=== PATIENT | male | born 1960 | race African-American/Black ===

== ENCOUNTER 2018-10-11 21:20 | Inpatient (IN) | payer MEDICARE, MEDICAID ==
--- NOTE | 2018-10-11 21:28 | ED Physician Chart ---
ED Chief Complaint/HPI - Patient Information Date Seen:: 10/11/18 Time Seen:: 21:26 Chief Complaint:: head trauma History of Present Illness:: this is a [facility] patient who fell out of bed tonight and sustain a laceration with a contusion. the patient's pulse ox became low after the fall. Historian:: EMS, Medical Records Review:: Nurse's Note Reviewed, Old Chart Reviewed ED Review of Systems - Review of Systems General/Constitutional: No fever, No chills, No weight loss, No weakness, No diaphoresis, No edema, No loss of appetite, Other Skin: No skin lesions, No rash, No bruising Head: No headache, No light-headedness Eyes: No loss of vision, No pain, No diplopia ENT: No earache, No nasal drainage, No sore throat, No tinnitus Neck: No neck pain, No swelling, No thyromegaly, No stiffness, No mass noted Cardio Vascular: No chest pain, No palpitations, No PND, No orthopnea, No edema Pulmonary: No SOB, No cough, No sputum, No wheezing GI: No nausea, No vomiting, No diarrhea, No pain, No melena, No hematochezia, No constipation, No hematemesis G/U: No dysuria, No frequency, No hematuria Musculoskeletal: No bone or joint pain, No back pain, No muscle pain Endocrine: No polyuria, No polydipsia Psychiatric: No prior psych history, No depression, No anxiety, No suicidal ideation Hematopoietic: No bruising, No lymphadenopathy Allergic/Immuno: No urticaria, No angioedema Neurological: No syncope, No focal symptoms, No weakness, No paresthesia, No headache, No seizure, No dizziness, No confusion, No vertigo ED Past Medical History - Past Medical History Obtainable: Yes Past Medical History: HTN, Dyslipidemia, Dementia, Other (glaucoma, parkinson's) Family History: None Social History: Non Smoker, No Alcohol, No Drug Use, Care Facility Surgical History: None Psychiatricy History: None Medication: Reviewed Family Medical History - Family Member Mother History Unknown: Yes ED Physical Exam - Physical Examination General/Constitutional: Awake, Well-developed, well-nourished, Alert, No distress, GCS 15, Non-toxic appearing, Ambulatory Head: Atraumatic Other Head comments:: a small star shaped superfical laceration. Eyes: Lids, conjuctiva normal, PERRL, EOMI Skin: Nl inspection, No rash, No skin lesions, No ecchymosis, Well hydrated, No lymphadenopathy ENMT: External ears, nose nl, Nasal exam nl, Lips, teeth, gums nl Neck: Nontender, Full ROM w/o pain, No JVD, No nuchal rigidity, No bruit, No mass, No stridor Respiratory: Nl effort/Exclusion, Clear to Auscultation, No Wheeze/Rhonchi/Rales Cardio Vascular: RRR, No murmur, gallop, rubs, NL S1 S2 GI: No tenderness/rebounding/guarding, No organomegaly, No hernia, Normal BS's, Nondistended, No mass/bruits, No McBurney tenderness : No CVA tenderness Extremities: No tenderness or effusion, Full ROM, normal strength in all extremities, No edema, Normal digits & nails Neuro/Psych: Alert/oriented, DTR's symmetric, Normal sensory exam, Normal motor strength, Judgement/insight normal (poor insight and confused at times), Mood normal, Normal gait, No focal deficits Misc: Normal back, No paraspinal tenderness ED Labs/Radiology/EKG Results - Lab Results Results: chest -xray = nad - Radiology Results Results: ct scan of the head = nad ED Assessment - Assessment General Assessment: head trauma ED Septic Shock - . Is Septic Shock (SBP<90, OR Lactate>4 mmol\L) present?: No ED Reassessment (Disposition) - Reassessment Reassessment Condition:: Improved - Diagnosis Diagnosis:: head contusion forehead laceration.
[2018-10-11 22:31] LABS: % BASOPHILS 0.8 % (0.0-2.0); % EOSINOPHILS 0.8 % (0.0-5.0); % LYMPHOCYTES 17.9 % (20.0-50.0); % MONOCYTES 6.5 % (2.0-10.0); BASOPHILE ABSOLUTE 0.1 Th/cumm (0-0.2); EOSINOPHILE ABSOLUTE 0.1 Th/cmm (0.1-0.4); HEMATOCRIT 45.4 % (41.0-60); HEMOGLOBIN 14.2 gm/dL (12-16); LYMPHOCYTE ABSOLUTE 1.4 Th/cmm (1.5-3.0); MEAN CELL VOLUME 82.8 fl (80-99); MEAN CORPUSCULAR HGB CONC 31.4 pg (28.0-36.0); MEAN PLATELET VOLUME 7.1 fl; MONOCYTE ABSOLUTE 0.5 Th/cmm (0.3-1.0); NEUTROPHILE ABSOLUTE 5.8 Th/cmm (1.8-8.0); PLATELET COUNT 317 Th/cmm (150-400); RED BLOOD COUNT 5.48 Mil/cmm (4.30-5.70); RED CELL DISTRIBUTION WIDTH 12.6 % (11.5-20.0); WHITE BLOOD COUNT 7.9 Th/cmm (4.8-10.8)
[2018-10-11 22:41] LABS: INR 0.99 (0.5-1.4); PROTHROMBIN TIME (TEST) 10.3 SECONDS (9.5-11.5)
[2018-10-11 22:49] LABS: ALB/GLOB RATIO 1.2 (1.0-1.8); ALBUMIN 4.2 gm/dL (4.2-5.5); ALKALINE PHOSPHATASE 61 U/L (34-104); ANION GAP 11.9 (7.0-16.0); BILIRUBIN,TOTAL 0.6 mg/dL (0.3-1.0); BUN - UREA NITROGEN 14 mg/dL (7-25); CALCIUM SERUM 9.8 mg/dL (8.6-10.3); CARBON DIOXIDE 29.4 mEq/L (21.0-31.0); CHLORIDE 96 mEq/L (98-107); CREATININE - SERUM 0.8 mg/dL (0.7-1.3); GFR AFRICAN-AMERICAN > 60.0 ml/min (>90); GFR NON AFRICAN-AMERICAN > 60.0 ml/min; GLUCOSE 169 mg/dL (70-105); POTASSIUM SERUM 4.3 mEq/L (3.5-5.1); SGOT 19 U/L (13-39); SGPT/ALT 23 U/L (7-52); SODIUM SERUM 133 mEq/L (136-145); TOTAL PROTEIN,SERUM 7.8 gm/dL (6.0-8.3)
[2018-10-11] MEDS ORDERED: IOHEXOL 350mgI/mL 150mL IV ONE (23:36)
[2018-10-12] MEDS ORDERED: Albuterol/Ipratropium Neb 3 ML AERS HHN ONE ×2 (03:56→03:58)
[2018-10-12 08:38] LABS: PaO2 65.9 mmHg (80.0-100.0)
--- NOTE | 2018-10-12 09:38 | Diagnostic Imaging Report ---
CT pulmonary angiogram with intravenous contrast History: Pulmonary embolism Total DLP equals 505 CTDI equals 12.4 Findings: There is evidence for right perihilar infrahilar adenopathy with superimposed infiltrate. Clinical correlation recommended. Following administration of intravenous contrast, axial sections were obtained from a level above the clavicles down to a level below the diaphragm. The study is limited due to patient inability to cooperate and motion artifacts. The exam demonstrates normal opacification of the main right and left pulmonary arteries. No intraluminal lesions are seen. Specifically, no evidence of pulmonary embolism. There is preservation of normal fat planes throughout the mediastinum. IMPRESSION: No evidence of pulmonary emboli bilaterally Right perihilar and infrahilar infiltrates, question of small small adenopathy. Clinical correlation recommended. The study is limited due to patient motion artifacts.
--- NOTE | 2018-10-12 09:44 | Diagnostic Imaging Report ---
CT scan of the brain without intravenous contrast HISTORY: Trauma Total DLP equals 1049 CTDI equals 49.3 Axial sections were obtained from the base of the skull to the vertex. There is prominence/enlargement of the ventricular system size. Associated enlargement of cerebral sulci and subarachnoid cisterns. Findings are consistent with changes of generalized cerebral atrophy. No acute parenchymal abnormalities. No acute cerebral hemorrhage. Hypodensity is seen within the supratentorial white matter regions without mass effect. The findings may be associated with chronic small vessel ischemic disease. No extra-axial masses or abnormal fluid collections. Soft tissue abrasion noted in the right frontal area IMPRESSION: 1. No acute abnormalities 2. Cerebral atrophy 3. Supratentorial white matter changes that may reflect chronic small vessel ischemic disease 4. Soft tissue abrasion right frontal area.
--- NOTE | 2018-10-12 10:01 | Diagnostic Imaging Report ---
Exam: Chest x-ray HISTORY: Trauma Findings: Upright examination of the chest was reviewed, no prior studies available comparison. Bony thorax is intact. Mediastinal structures midline the heart is not enlarged. There is evidence for mild congestive heart failure changes bilaterally. The costophrenic angles are clear. There is mild right basilar atelectasis. IMPRESSION: Mild congestion. Clinical correlation recommended. Right basilar atelectasis.
[2018-10-12 11:24] VITALS: BP 131/80
[2018-10-12 13:13] LABS: % BASOPHILS 0.9 % (0.0-2.0); % EOSINOPHILS 4.1 % (0.0-5.0); % LYMPHOCYTES 29.7 % (20.0-50.0); % MONOCYTES 7.7 % (2.0-10.0); % NEUTROPHILS 57.6 % (40.0-80.0); BASOPHILE ABSOLUTE 0.1 Th/cumm (0-0.2); EOSINOPHILE ABSOLUTE 0.3 Th/cmm (0.1-0.4); HEMOGLOBIN 12.9 gm/dL (12-16); LYMPHOCYTE ABSOLUTE 2.4 Th/cmm (1.5-3.0); MEAN CELL VOLUME 82.7 fl (80-99); MEAN CORPUSCULAR HEMOGLOBIN 26.5 pg (26.0-30.0); MEAN PLATELET VOLUME 6.7 fl; MONOCYTE ABSOLUTE 0.6 Th/cmm (0.3-1.0); NEUTROPHILE ABSOLUTE 4.8 Th/cmm (1.8-8.0); PLATELET COUNT 312 Th/cmm (150-400); RED BLOOD COUNT 4.87 Mil/cmm (4.30-5.70); RED CELL DISTRIBUTION WIDTH 12.5 % (11.5-20.0); WHITE BLOOD COUNT 8.2 Th/cmm (4.8-10.8)
[2018-10-12 13:14] LABS: HEMATOCRIT 40.3 % (41.0-60)
[2018-10-12 13:28] LABS: ANION GAP 11.9 (7.0-16.0); BUN - UREA NITROGEN 12 mg/dL (7-25); CALCIUM SERUM 9.2 mg/dL (8.6-10.3); CHLORIDE 98 mEq/L (98-107); CREATININE - SERUM 0.8 mg/dL (0.7-1.3); GFR AFRICAN-AMERICAN > 60.0 ml/min (>90); GFR NON AFRICAN-AMERICAN > 60.0 ml/min; GLUCOSE 117 mg/dL (70-105); POTASSIUM SERUM 3.9 mEq/L (3.5-5.1); SODIUM SERUM 135 mEq/L (136-145)
--- NOTE | 2018-10-12 15:40 | History and Physical ---
History of Present Illness - HPI Chief Complaint: 58 y/o male patient was brought into ER due to patient falling out of bed and sustaining a laceration with a contusion. HPI: 58 y/o male patient was admitted to [facility] due to patient falling out of bed and sustaining a laceration with a contusion. Patient has history of Hypertension, Dyslipidemia, Dementia, Glaucoma and Parkinson's disease. Patient had an ER assessment and a complete workup was done. Patient had a CT scan of the head done which showed No acute abnormalities, Cerebral atrophy, Supratentorial white matter changes that may reflect chronic small vessel ischemic disease and Soft tissue abrasion right frontal area. Chest x-ray was also done and showed Mild congestion and Right basilar atelectasis. Patient was diagnosed with Right lower lobe pneumonia, ALOC, Head Contusion with Forehead laceration, Organic brain syndrome and Hypoxemia. The Wound was cleaned and dressed. Patient will have a Psych consult and I will follow, treat and monitor patient. Patient will continue present treatment plan as ordered. Vital Signs: Last Vital Signs Temp 98.9 F 10/12/18 11:56 Pulse 96 10/12/18 11:56 Resp 19 10/12/18 11:56 BP 112/86 10/12/18 11:56 Pulse Ox 96 10/12/18 11:56 Past Medical History Cardiovascular: Report: HTN Pulmonary: Report: Pneumonia [employer]: Report: Dementia GI: Report: No Pertinent Hx Psych: Report: Other (Dementia.) Rheumatologic: Report: No pertinent Hx Infectious Disease: Report: No Pertinent Hx Renal/: Report: No Pertinent Hx Endocrine: Report: No Pertinent Hx Dermatology: Report: No Pertinent Hx - Past Surgical History Past Surgical History: No pertinent Hx Family Medical History - Family Member Mother History Unknown: Yes Ethnicity: Unknown Living Status: Unknown Social History Smoke: No Alcohol: None Drugs: None Lives: Residential Domestic Violence: Negative Health Maintenance Health Maintenance: Other (see chart.) - Medications Home Medications: Home Medication Medication Instructions Recorded Type Aspirin [Aspirin Chewable] 81 mg PO DAILY 10/11/18 History Atorvastatin Calcium [Lipitor] 10 mg PO HS 10/11/18 History Calcium Carbonate 500 mg PO BID 10/11/18 History Hydrocodone/Acetaminophen [[place] 1 each PO Q8H PRN 10/11/18 History 5-325 Tablet] Lactulose 10 gm PO DAILY 10/11/18 History Multivit &Minerals/Ferrous Fum 5 ml PO DAILY 10/11/18 History [Multivitamin Liquid] amLODIPine Besylate [Norvasc] 5 mg PO DAILY 10/11/18 History Other Medications: please see medication reconciliation sheet. - Allergies Allergies/Adverse Reactions: Allergies Allergy/AdvReac Type Severity Reaction Status Date / Time divalproex sodium Allergy Verified 10/11/18 21:31 vitamin E (d-alpha Allergy Verified 10/11/18 21:31 tocopherol) Review of Systems - Review of Systems Constitutional: Report: Other (Head contusion with forehead laceration) Eyes: Report: No Significant ENT: Report: No Significant Respiratory: Report: Other (Mild congestion.) Cardiovascular: Report: No Significant Gastrointestinal: Report: No Significant Genitourinary: Report: No Significant Musculoskeletal: Report: No Significant Neurological: Report: Other (Hx of dementia.) Physical Exam - Physical Exam HEENT: Report: Ears Nose Throat within normal limits Neck: Report: Within normal limits Cardiovascular Systems: Report: +s1/s2 noted Respiratory: Report: Other (congested.) Abdomen: Report: Non-tender to palpation Back: Report: Inspection of back is within normal limits. Extremities: Report: Non-tender to palpation. Skin: Report: A wound was noted Neuro/Psych: Report: Mood affect is within normal limits - Lab Results All Lab Results last 24 hours: Laboratory Results - last 24 hr 10/11/18 10/11/18 10/11/18 22:05 22:05 22:05 WBC 7.9 RBC 5.48 Hgb 14.2 Hct 45.4 MCV 82.8 MCH 26.0 MCHC Differential 31.4 RDW 12.6 Plt Count 317 MPV 7.1 Neutrophils % 74.0 Lymphocytes % 17.9 L Monocytes % 6.5 Eosinophils % 0.8 Basophils % 0.8 PT 10.3 INR 0.99 PTT (Actin FS) 24.9 L Specimen Source Sample Site pH pCO2 pO2 HCO3 Base Excess O2 Saturation Iván Test Vent Rate Inspired O2 Tidal Volume PEEP Pressure (ins/psv/peep) Critical Value Sodium 133 L Potassium 4.3 Chloride 96 L Carbon Dioxide 29.4 Anion Gap 11.9 BUN 14 Creatinine 0.8 Est GFR ( Amer) > 60.0 Est GFR (Non-Af Amer) > 60.0 BUN/Creatinine Ratio 17.5 Glucose 169 H POC Glucose Calcium 9.8 Total Bilirubin 0.6 AST 19 ALT 23 Alkaline Phosphatase 61 Ammonia Troponin I Total Protein 7.8 Albumin 4.2 Globulin 3.6 Albumin/Globulin Ratio 1.2 TSH 10/11/18 10/11/18 10/11/18 22:05 22:05 22:05 WBC RBC Hgb Hct MCV MCH MCHC Differential RDW Plt Count MPV Neutrophils % Lymphocytes % Monocytes % Eosinophils % Basophils % PT INR PTT (Actin FS) Specimen Source Sample Site pH pCO2 pO2 HCO3 Base Excess O2 Saturation Iván Test Vent Rate Inspired O2 Tidal Volume PEEP Pressure (ins/psv/peep) Critical Value Sodium Potassium Chloride Carbon Dioxide Anion Gap BUN Creatinine Est GFR ( Amer) Est GFR (Non-Af Amer) BUN/Creatinine Ratio Glucose POC Glucose Calcium Total Bilirubin AST ALT Alkaline Phosphatase Ammonia 50 Troponin I 0.01 Total Protein Albumin Globulin Albumin/Globulin Ratio TSH 0.55 10/12/18 10/12/18 10/12/18 08:08 09:04 13:07 WBC 8.2 RBC 4.87 Hgb 12.9 Hct 40.3 L D MCV 82.7 MCH 26.5 MCHC Differential 32.0 RDW 12.5 Plt Count 312 MPV 6.7 Neutrophils % 57.6 Lymphocytes % 29.7 Monocytes % 7.7 Eosinophils % 4.1 Basophils % 0.9 PT INR PTT (Actin FS) Specimen Source Arterial Sample Site RB pH 7.430 pCO2 40.0 pO2 65.9 L HCO3 25.8 Base Excess 1.5 O2 Saturation 94.0 Iván Test NA Vent Rate NA Inspired O2 21 Tidal Volume NA PEEP NA Pressure (ins/psv/peep) NA Critical Value SH Sodium Potassium Chloride Carbon Dioxide Anion Gap BUN Creatinine Est GFR ( Amer) Est GFR (Non-Af Amer) BUN/Creatinine Ratio Glucose POC Glucose 118 H Calcium Total Bilirubin AST ALT Alkaline Phosphatase Ammonia Troponin I Total Protein Albumin Globulin Albumin/Globulin Ratio TSH 10/12/18 13:07 WBC RBC Hgb Hct MCV MCH MCHC Differential RDW Plt Count MPV Neutrophils % Lymphocytes % Monocytes % Eosinophils % Basophils % PT INR PTT (Actin FS) Specimen Source Sample Site pH pCO2 pO2 HCO3 Base Excess O2 Saturation Iván Test Vent Rate Inspired O2 Tidal Volume PEEP Pressure (ins/psv/peep) Critical Value Sodium 135 L Potassium 3.9 Chloride 98 Carbon Dioxide 29.0 Anion Gap 11.9 BUN 12 Creatinine 0.8 Est GFR ( Amer) > 60.0 Est GFR (Non-Af Amer) > 60.0 BUN/Creatinine Ratio 15.0 Glucose 117 H POC Glucose Calcium 9.2 Total Bilirubin AST ALT Alkaline Phosphatase Ammonia Troponin I Total Protein Albumin Globulin Albumin/Globulin Ratio TSH - Assessment Assessment: Right lower lobe pneumonia. ALOC. Head Contusion with Forehead laceration. Organic brain syndrome. Hypoxemia. Hypertension. Dyslipidemia. Dementia. Glaucoma. Parkinson's disease. - Plan Plan: Continuation of care Monitor vitals, labs and diet continue present meds as directed Local skin care and wound care prn fall precaution safety precaution psych consult continue present treatment plan as ordered.
[2018-10-13 06:55] LABS: % BASOPHILS 0.6 % (0.0-2.0); % EOSINOPHILS 4.3 % (0.0-5.0); % LYMPHOCYTES 38.6 % (20.0-50.0); % MONOCYTES 9.2 % (2.0-10.0); % NEUTROPHILS 47.3 % (40.0-80.0); EOSINOPHILE ABSOLUTE 0.3 Th/cmm (0.1-0.4); HEMATOCRIT 39.9 % (41.0-60); HEMOGLOBIN 12.6 gm/dL (12-16); LYMPHOCYTE ABSOLUTE 2.3 Th/cmm (1.5-3.0); MEAN CELL VOLUME 83.2 fl (80-99); MEAN CORPUSCULAR HEMOGLOBIN 26.3 pg (26.0-30.0); MEAN CORPUSCULAR HGB CONC 31.6 pg (28.0-36.0); MEAN PLATELET VOLUME 6.7 fl; MONOCYTE ABSOLUTE 0.6 Th/cmm (0.3-1.0); NEUTROPHILE ABSOLUTE 2.8 Th/cmm (1.8-8.0); PLATELET COUNT 314 Th/cmm (150-400); RED BLOOD COUNT 4.79 Mil/cmm (4.30-5.70); RED CELL DISTRIBUTION WIDTH 12.7 % (11.5-20.0)
[2018-10-13 07:09] LABS: ALB/GLOB RATIO 1.1 (1.0-1.8); ALBUMIN 3.9 gm/dL (4.2-5.5); ALKALINE PHOSPHATASE 51 U/L (34-104); ANION GAP 11.6 (7.0-16.0); BILIRUBIN,TOTAL 0.6 mg/dL (0.3-1.0); BUN - UREA NITROGEN 16 mg/dL (7-25); CALCIUM SERUM 9.3 mg/dL (8.6-10.3); CARBON DIOXIDE 28.2 mEq/L (21.0-31.0); CHLORIDE 99 mEq/L (98-107); CREATININE - SERUM 0.9 mg/dL (0.7-1.3); GFR AFRICAN-AMERICAN > 60.0 ml/min (>90); GFR NON AFRICAN-AMERICAN > 60.0 ml/min; GLUCOSE 108 mg/dL (70-105); POTASSIUM SERUM 3.8 mEq/L (3.5-5.1); SGOT 19 U/L (13-39); SGPT/ALT 16 U/L (7-52); SODIUM SERUM 135 mEq/L (136-145); TOTAL PROTEIN,SERUM 7.4 gm/dL (6.0-8.3)
--- NOTE | 2018-10-13 11:27 | Consultation ---
DATE OF CONSULTATION: 10/12/2018 HISTORY OF PRESENT ILLNESS: The patient is a 58-year-old. The patient is in bed, fell and sustained a laceration over the right eyebrow. The patient essentially nonverbal, not talking much. The patient in a facility. PAST MEDICAL HISTORY: The patient with dementia, Parkinson's, hypertension, dyslipidemia, glaucoma. MEDICATIONS: As per reconciliation. REVIEW OF SYSTEMS: Twelve points except for above. PHYSICAL EXAMINATION: VITAL SIGNS: Temperature 98.9, blood pressure 110/80, pulse is 90. NECK: Supple. CARDIAC: Normal heart sounds. LUNGS: Bilateral crepitation. ABDOMEN: Soft. NEUROLOGIC: The patient lying in bed. No speech. The patient will look at me, follow some instructions, but does not say much. Pupils react to light. Face immobile. Motor: The patient has lot of stiffness, rigidity, both upper and lower extremity. Reflexes 1. INVESTIGATIONS: CT scan of the head, no acute process. There is noted to be no intracranial bleed or stroke. The patient has some white matter changes. Soft tissue abrasion over the right frontal area. ASSESSMENT: 1. Fall. 2. Head injury. 3. Dementia. 4. Parkinson's. 5. Hypertension. PLAN: The patient at this time will have a CT scan cervical spine. The patient should start back on his preadmission medications, parkinsonian medications. Swallowing assessment. JOB# [id number]
--- NOTE | 2018-10-13 13:35 | Diagnostic Imaging Report ---
Exam: CT examination cervical spine HISTORY: Status post fall Total DLP equals 755 CTDI equals 36.1 Findings: Multiple contiguous thin section of cervical spine were obtained from base of skull to thoracic outlet without the administration of contrast material no prior studies available comparison. The study demonstrates no evidence for acute fracture dislocation. The vertebral bodies of normal height with narrowing of the intravertebral disc spaces. There is evidence for spurring and bridging of the cervical vertebrae. The posterior elements are intact. There is no evidence of spinal stenosis. Facet joints degenerative changes noted IMPRESSION: Degenerative osteoarthritis cervical spine.
[2018-10-13] MEDS: cefTRIAXone 1 GM in Sodium Chloride 0.9% 50 ML IV SCH (21:07)
[2018-10-13] MEDS: Albuterol/Ipratropium Neb 3 ML AERS HHN SCH (23:08)
[2018-10-14] MEDS: Albuterol/Ipratropium Neb 3 ML AERS HHN SCH ×6 (04:07→23:36)
[2018-10-14] MEDS ORDERED: Hydrocodone/APAP 5mg/325mg Tab PO PRN (05:24)
[2018-10-14 06:28] LABS: ANION GAP 12.1 (7.0-16.0); BUN - UREA NITROGEN 13 mg/dL (7-25); CALCIUM SERUM 9.2 mg/dL (8.6-10.3); CARBON DIOXIDE 28.8 mEq/L (21.0-31.0); CHLORIDE 101 mEq/L (98-107); CREATININE - SERUM 0.8 mg/dL (0.7-1.3); GFR AFRICAN-AMERICAN > 60.0 ml/min (>90); GFR NON AFRICAN-AMERICAN > 60.0 ml/min; GLUCOSE 122 mg/dL (70-105); POTASSIUM SERUM 3.9 mEq/L (3.5-5.1); SODIUM SERUM 138 mEq/L (136-145)
[2018-10-14] MEDS: Multivitamin w/ Minerals Tab PO SCH (09:03)
[2018-10-14] MEDS: Aspirin 81mg Chewable Tab PO SCH (09:03)
[2018-10-14] MEDS: Lactulose 10 Gm/15 mL 30mL UDC PO SCH (09:04)
--- NOTE | 2018-10-14 09:57 | Consultation ---
DATE OF CONSULTATION: 10/13/2018 REFERRING PHYSICIAN: Dr. Quiroz. Thank you very much for this consultation. HISTORY OF PRESENT ILLNESS: The patient is a 58-year-old man, [facility] resident, history of dementia, Parkinson's disease, weakness, dysphagia, who was sent because of fall, sustained laceration on the forehead. The patient has stitches placed and unable to give much history. He was found to have pneumonia in right lower lobe area, was admitted for treatment and management. The patient seems to be congested on and off, not in acute distress. No other history available at this time. PHYSICAL EXAMINATION: VITAL SIGNS: Temperature is 97.1, pulse 86, respiration 19, blood pressure 122/80, saturation 99% on room air. HEENT: Atraumatic, normocephalic. Pupils equal and reactive to light and accommodation. Ears, nose, throat, normal. NECK: Supple. No JVD. CHEST: There are few rhonchi bilaterally. HEART: Regular rate and rhythm. ABDOMEN: Soft. EXTREMITIES: No edema. LABORATORY DATA: WBC 6.0, hemoglobin 12.6. Sodium is 135, potassium 3.8, BUN 16, creatinine 0.9. ABGs: pH 7.43, pCO2 40, pO2 65. Chest x-ray showed an infiltrate in the basilar area. IMPRESSION: 1. Respiratory failure. 2. Pneumonia. 3. Status post fall. 4. Parkinson. 5. Dysphagia. PLAN: 1. Continue nebulizer treatment and antibiotics. 2. Follow up chest x-ray. I will follow the patient with you. JOB# [id number]
[2018-10-14 11:07] LABS: HEMATOCRIT 41.1 % (41.0-60); HEMOGLOBIN 12.9 gm/dL (12-16); MEAN CORPUSCULAR HEMOGLOBIN 26.7 pg (26.0-30.0); MEAN CORPUSCULAR HGB CONC 31.5 pg (28.0-36.0); MEAN PLATELET VOLUME 7.9 fl; PLATELET COUNT 279 Th/cmm (150-400); RED BLOOD COUNT 4.84 Mil/cmm (4.30-5.70); RED CELL DISTRIBUTION WIDTH 13.3 % (11.5-20.0)
[2018-10-14 11:08] LABS: BAND NEUTROPHILE 0 % (0-10); BASOPHIL 0.6 % (0-3); EOSINOPHIL 5.1 % (0-5); LYMPHOCYTE 38.2 % (20-50); MONOCYTE 11.9 % (2-10); NEUTROPHILS 44.2 % (40-80)
--- NOTE | 2018-10-14 17:06 | Internal Medicine Prog Note ---
Internal Medicine Subjective - Subjective Service Date: 10/14/18 Patient seen and examined:: with staff Patient is:: asleep Per staff patient has:: tolerating meds Internal Medicine Objective - Results Result Diagrams: 10/14/18 05:25 10/14/18 05:25 Recent Labs: Laboratory Last Values WBC 6.0 Th/cmm (4.8-10.8) 10/14/18 05:25 RBC 4.84 Mil/cmm (4.30-5.70) 10/14/18 05:25 Hgb 12.9 gm/dL (12-16) 10/14/18 05:25 Hct 41.1 % (41.0-60) 10/14/18 05:25 MCV 85.0 fl (80-99) 10/14/18 05:25 MCH 26.7 pg (26.0-30.0) 10/14/18 05:25 MCHC Differential 31.5 pg (28.0-36.0) 10/14/18 05:25 RDW 13.3 % (11.5-20.0) 10/14/18 05:25 Plt Count 279 Th/cmm (150-400) 10/14/18 05:25 MPV 7.9 fl 10/14/18 05:25 Add Manual Diff YES 10/14/18 05:25 Neutrophils % 47.3 % (40.0-80.0) 10/13/18 06:51 Band Neutrophils % 0 % (0-10) 10/14/18 05:25 Lymphocytes % 38.6 % (20.0-50.0) 10/13/18 06:51 Monocytes % 9.2 % (2.0-10.0) 10/13/18 06:51 Eosinophils % 4.3 % (0.0-5.0) 10/13/18 06:51 Basophils % 0.6 % (0.0-2.0) 10/13/18 06:51 Neutrophils (Manual) 44.2 % (40-80) 10/14/18 05:25 Lymphocytes 38.2 % (20-50) 10/14/18 05:25 Monocytes 11.9 % (2-10) H 10/14/18 05:25 Eosinophils 5.1 % (0-5) H 10/14/18 05:25 Basophils 0.6 % (0-3) 10/14/18 05:25 PT 10.3 SECONDS (9.5-11.5) 10/11/18 22:05 INR 0.99 (0.5-1.4) 10/11/18 22:05 PTT (Actin FS) 24.9 SECONDS (26.0-38.0) L 10/11/18 22:05 Specimen Source Arterial 10/12/18 08:08 Sample Site RB 10/12/18 08:08 pH 7.430 (7.35-7.45) 10/12/18 08:08 pCO2 40.0 mmHg (35.0-45.0) 10/12/18 08:08 pO2 65.9 mmHg (80.0-100.0) L 10/12/18 08:08 HCO3 25.8 mEq/L (20.0-26.0) 10/12/18 08:08 Base Excess 1.5 mEq/L (-3.0-3.0) 10/12/18 08:08 O2 Saturation 94.0 % (92.0-100.0) 10/12/18 08:08 Iván Test NA 10/12/18 08:08 Vent Rate NA 10/12/18 08:08 Inspired O2 21 10/12/18 08:08 Tidal Volume NA 10/12/18 08:08 PEEP NA 10/12/18 08:08 Pressure (ins/psv/peep) NA 10/12/18 08:08 Critical Value SH 10/12/18 08:08 Sodium 138 mEq/L (136-145) 10/14/18 05:25 Potassium 3.9 mEq/L (3.5-5.1) 10/14/18 05:25 Chloride 101 mEq/L (98-107) 10/14/18 05:25 Carbon Dioxide 28.8 mEq/L (21.0-31.0) 10/14/18 05:25 Anion Gap 12.1 (7.0-16.0) 10/14/18 05:25 BUN 13 mg/dL (7-25) 10/14/18 05:25 Creatinine 0.8 mg/dL (0.7-1.3) 10/14/18 05:25 Est GFR ( Amer) > 60.0 ml/min (>90) 10/14/18 05:25 Est GFR (Non-Af Amer) > 60.0 ml/min 10/14/18 05:25 BUN/Creatinine Ratio 16.3 10/14/18 05:25 Glucose 122 mg/dL (70-105) H 10/14/18 05:25 POC Glucose 118 MG/DL (70 - 105) H 10/12/18 09:04 Calcium 9.2 mg/dL (8.6-10.3) 10/14/18 05:25 Total Bilirubin 0.6 mg/dL (0.3-1.0) 10/13/18 06:51 AST 19 U/L (13-39) 10/13/18 06:51 ALT 16 U/L (7-52) 10/13/18 06:51 Alkaline Phosphatase 51 U/L (34-104) 10/13/18 06:51 Ammonia 50 umol/L (16-53) 10/11/18 22:05 Troponin I 0.01 ng/mL (0.01-0.05) 10/11/18 22:05 Total Protein 7.4 gm/dL (6.0-8.3) 10/13/18 06:51 Albumin 3.9 gm/dL (4.2-5.5) L 10/13/18 06:51 Globulin 3.5 gm/dL 10/13/18 06:51 Albumin/Globulin Ratio 1.1 (1.0-1.8) 10/13/18 06:51 TSH 0.55 uIU/ml (0.34-5.60) 10/11/18 22:05 - Physical Exam Vitals and I&O: Vital Signs Temp 97.0 F 10/14/18 11:30 Pulse 105 10/14/18 14:36 Resp 19 10/14/18 14:36 BP 124/76 10/14/18 11:30 Pulse Ox 94 10/14/18 14:36 Intake & Output 10/13/18 10/14/18 10/14/18 18:59 06:59 18:59 Intake Total 250 Balance 250 Weight (lbs) 212 lb 212 lb Intake: Oral 250 Other: # Voids 2 2 Stool Characteristics Soft Brown Weight Source Bedscale Bedscale Active Medications: Current Medications Acetaminophen/Hydrocodone Bitart ([place] 5mg/325mg) 1 tab PO Q8H PRN PRN Reason: Pain (Severe) Stop: 12/13/18 05:23 Albuterol/Ipratropium (Duoneb Neb) 3 ml HHN Q4HRT [facility] Stop: 12/12/18 22:59 Last Admin: 10/14/18 14:35 Dose: 3 ml Amlodipine Besylate (Norvasc) 5 mg PO DAILY [facility] Stop: 12/13/18 08:59 Last Admin: 10/14/18 09:03 Dose: 5 mg Aspirin (Aspirin Chewable) 81 mg PO DAILY [facility] Stop: 12/13/18 08:59 Last Admin: 10/14/18 09:03 Dose: 81 mg Atorvastatin Calcium (Lipitor) 10 mg PO HS [facility]; Protocol Stop: 12/13/18 20:59 Calcium Carbonate (Os-Dagoberto) 500 mg PO BID [facility] Stop: 12/13/18 08:59 Last Admin: 10/14/18 16:23 Dose: 500 mg Ceftriaxone Sodium 1 gm/ (Sodium Chloride) 50 mls @ 100 mls/hr IV Q24HR [facility] Stop: 12/12/18 19:59 Last Admin: 10/13/18 21:07 Dose: 100 mls/hr Lactulose (Cephulac) 10 gm PO DAILY [facility] Stop: 12/13/18 08:59 Last Admin: 10/14/18 09:04 Dose: 10 gm General: weak HEENT: NC/AT, PERRLA Neck: Supple Cardiovascular: RRR, without murmur Internal Medicine Assmt/Plan - Assessment Assessment: Right lower lobe pneumonia. ALOC. Head Contusion with Forehead laceration. Organic brain syndrome. Hypoxemia. Hypertension. Dyslipidemia. Dementia. Glaucoma. Parkinson's disease. - Plan Plan: tion of care Monitor vitals, labs and diet continue present meds as directed Local skin care and wound care prn fall precaution safety precaution psych consult continue present treatment plan as ordere Nutritional Asmnt/Malnutr-PDOC - Dietary Evaluation Malnutrition Findings (Please click <Entered> for more info): Nutritional Asmnt/Malnutrition Start: 10/13/18 14: 41 Text: Status: Complete Freq: Protocol: Document 10/13/18 14:41 GERARD (Rec: 10/13/18 14:54 GERARD [email or web address]) Nutritional Asmnt/Malnutrition Patient General Information Nutritional Screening High Risk Diagnosis hypoxemia, head trauma, organic brain syndrome Pertinent Medical Hx/Surgical Hx HTN, dyslipidemia, dementia, glaucoma, parkinson Subjective Information Pt seen eating lunch in bed at time of visit, feeder, non verbal noted. Pt appeared good appetite. Per [employer], pt ate 100 % of meals. Current Diet Order/ Nutrition Support pureed Pertinent Medications no active medications Pertinent Labs 10/13 Na 135, Cl 108 Nutritional Hx/Data Height 6 ft 3 in Height (Calculated Centimeters) 190.5 Current Weight (lbs) 212 lb Weight (Calculated Kilograms) 96.2 Weight (Calculated Grams) 54050.6 [place] Body Weight 196 Body Mass Index (BMI) 26.4 Weight Status Overweight GI Symptoms GI Symptoms None Last BM not indicated Difficult in: None Skin Integrity/Comment: bruise to left upper arm, scar to left knee, dryness to left lower foot and sacrum Current %PO Good (75-100%) Estimated Nutritional Goals BEE in Kcals: Using Current wt Calories/Kcals/Kg 23-27 Kcals Calculated 1075-3813 Protein: Using Current wt Protein g/k.8 Protein Calculated 77 Fluid: ml 2208-2592ml (1ml/kcal) Nutritional Problem No current Nutrition Prob Problem n/A Malnutrition Alert Is there a minimum of two criteria No selected? Query Text:Check all the applicable criteria. A minimum of two criteria are recommended for diagnosis of either severe or non-severe malnutrition. Malnutrition Related to Morbid Obesity Malnutrition related to morbid obesity No Intervention/Recommendation Comments 1. Continue with pureed diet as ordered. Assist pt with all meals. 2. Monitor PO intake, wt, labs and skin integrity 3. F/U as low risk in 7 days Expected Outcomes/Goals Expected Outcomes/Goals 1. PO intake to meet at least 75% of nutritional needs. 2. Wt stability, skin to remain intact, labs to approach WNL.
[2018-10-14] MEDS: cefTRIAXone 1 GM in Sodium Chloride 0.9% 50 ML IV SCH (20:47)
[2018-10-14] MEDS ORDERED: Atorvastatin Calcium 10 MG TAB PO SCH (21:00)
[2018-10-15] MEDS: Albuterol/Ipratropium Neb 3 ML AERS HHN SCH ×4 (03:29→14:31)
[2018-10-15 06:34] LABS: % BASOPHILS 0.7 % (0.0-2.0); % EOSINOPHILS 5.1 % (0.0-5.0); % LYMPHOCYTES 38.2 % (20.0-50.0); % MONOCYTES 11.3 % (2.0-10.0); % NEUTROPHILS 44.7 % (40.0-80.0); EOSINOPHILE ABSOLUTE 0.3 Th/cmm (0.1-0.4); HEMATOCRIT 41.3 % (41.0-60); HEMOGLOBIN 13.4 gm/dL (12-16); LYMPHOCYTE ABSOLUTE 2.6 Th/cmm (1.5-3.0); MEAN CELL VOLUME 82.1 fl (80-99); MEAN CORPUSCULAR HEMOGLOBIN 26.6 pg (26.0-30.0); MEAN CORPUSCULAR HGB CONC 32.4 pg (28.0-36.0); MEAN PLATELET VOLUME 7.2 fl; MONOCYTE ABSOLUTE 0.8 Th/cmm (0.3-1.0); PLATELET COUNT 308 Th/cmm (150-400); RED BLOOD COUNT 5.03 Mil/cmm (4.30-5.70); RED CELL DISTRIBUTION WIDTH 12.3 % (11.5-20.0); WHITE BLOOD COUNT 6.7 Th/cmm (4.8-10.8)
[2018-10-15 06:51] LABS: ANION GAP 12.4 (7.0-16.0); BUN - UREA NITROGEN 11 mg/dL (7-25); CALCIUM SERUM 9.4 mg/dL (8.6-10.3); CARBON DIOXIDE 28.8 mEq/L (21.0-31.0); CHLORIDE 100 mEq/L (98-107); CREATININE - SERUM 0.9 mg/dL (0.7-1.3); GFR AFRICAN-AMERICAN > 60.0 ml/min (>90); GFR NON AFRICAN-AMERICAN > 60.0 ml/min; GLUCOSE 120 mg/dL (70-105); POTASSIUM SERUM 4.2 mEq/L (3.5-5.1); SODIUM SERUM 137 mEq/L (136-145)
[2018-10-15 07:32] LABS: URINE SOURCE CATH
[2018-10-15 07:51] LABS: URINE BILIRUBIN NEGATIVE (NEGATIVE); URINE BLOOD NEGATIVE (NEGATIVE); URINE GLUCOSE (UA) NEGATIVE (NEGATIVE); URINE KETONE NEGATIVE (NEGATIVE); URINE LEUKOCYTE ESTERASE NEGATIVE (NEGATIVE); URINE NITRATE NEGATIVE (NEGATIVE); URINE PH 6.5 (4.6 - 8.0); URINE PROTEIN NEGATIVE (NEGATIVE); URINE UROBILINOGEN 0.2 E.U./dL (0.2 - 1.0)
[2018-10-15 08:00] LABS: URINE CLARITY CLEAR (CLEAR); URINE COLOR YELLOW
[2018-10-15 08:01] LABS: URINE BACTERIA FEW /hpf (NONE SEEN); URINE MICROSCOPIC INDICATED? YES; URINE RBC 0-2 /hpf (0-5); URINE WBC 0-2 /hpf (0-5)
[2018-10-15] MEDS: Aspirin 81mg Chewable Tab PO SCH (08:29)
[2018-10-15] MEDS: Multivitamin w/ Minerals Tab PO SCH (08:29)
[2018-10-15] MEDS: Lactulose 10 Gm/15 mL 30mL UDC PO SCH (08:29)
--- NOTE | 2018-10-15 09:12 | Diagnostic Imaging Report ---
Chest x-ray single view History: Evidence of breath Comparison: 10/11/2018 The heart size is normal. No focal pulmonary parenchymal processes. No hilar or mediastinal abnormalities. Impression: No acute abnormalities
--- NOTE | 2018-10-15 12:30 | Internal Medicine Prog Note ---
Internal Medicine Subjective - Subjective Service Date: 10/15/18 Patient seen and examined:: with staff, chart reviewed Patient is:: awake, verbal, confused Patient Complaints of:: other (ALOC.) Per staff patient has:: no adverse event, no episodes of fall, confused, tolerating meds Internal Medicine Objective - Results Result Diagrams: 10/15/18 05:50 10/15/18 05:50 Recent Labs: Laboratory Last Values WBC 6.7 Th/cmm (4.8-10.8) 10/15/18 05:50 RBC 5.03 Mil/cmm (4.30-5.70) 10/15/18 05:50 Hgb 13.4 gm/dL (12-16) 10/15/18 05:50 Hct 41.3 % (41.0-60) 10/15/18 05:50 MCV 82.1 fl (80-99) 10/15/18 05:50 MCH 26.6 pg (26.0-30.0) 10/15/18 05:50 MCHC Differential 32.4 pg (28.0-36.0) 10/15/18 05:50 RDW 12.3 % (11.5-20.0) 10/15/18 05:50 Plt Count 308 Th/cmm (150-400) 10/15/18 05:50 MPV 7.2 fl 10/15/18 05:50 Add Manual Diff YES 10/14/18 05:25 Neutrophils % 44.7 % (40.0-80.0) 10/15/18 05:50 Band Neutrophils % 0 % (0-10) 10/14/18 05:25 Lymphocytes % 38.2 % (20.0-50.0) 10/15/18 05:50 Monocytes % 11.3 % (2.0-10.0) H 10/15/18 05:50 Eosinophils % 5.1 % (0.0-5.0) H 10/15/18 05:50 Basophils % 0.7 % (0.0-2.0) 10/15/18 05:50 Neutrophils (Manual) 44.2 % (40-80) 10/14/18 05:25 Lymphocytes 38.2 % (20-50) 10/14/18 05:25 Monocytes 11.9 % (2-10) H 10/14/18 05:25 Eosinophils 5.1 % (0-5) H 10/14/18 05:25 Basophils 0.6 % (0-3) 10/14/18 05:25 PT 10.3 SECONDS (9.5-11.5) 10/11/18 22:05 INR 0.99 (0.5-1.4) 10/11/18 22:05 PTT (Actin FS) 24.9 SECONDS (26.0-38.0) L 10/11/18 22:05 Specimen Source Arterial 10/12/18 08:08 Sample Site RB 10/12/18 08:08 pH 7.430 (7.35-7.45) 10/12/18 08:08 pCO2 40.0 mmHg (35.0-45.0) 10/12/18 08:08 pO2 65.9 mmHg (80.0-100.0) L 10/12/18 08:08 HCO3 25.8 mEq/L (20.0-26.0) 10/12/18 08:08 Base Excess 1.5 mEq/L (-3.0-3.0) 10/12/18 08:08 O2 Saturation 94.0 % (92.0-100.0) 10/12/18 08:08 Iván Test NA 10/12/18 08:08 Vent Rate NA 10/12/18 08:08 Inspired O2 21 10/12/18 08:08 Tidal Volume NA 10/12/18 08:08 PEEP NA 10/12/18 08:08 Pressure (ins/psv/peep) NA 10/12/18 08:08 Critical Value SH 10/12/18 08:08 Sodium 137 mEq/L (136-145) 10/15/18 05:50 Potassium 4.2 mEq/L (3.5-5.1) 10/15/18 05:50 Chloride 100 mEq/L (98-107) 10/15/18 05:50 Carbon Dioxide 28.8 mEq/L (21.0-31.0) 10/15/18 05:50 Anion Gap 12.4 (7.0-16.0) 10/15/18 05:50 BUN 11 mg/dL (7-25) 10/15/18 05:50 Creatinine 0.9 mg/dL (0.7-1.3) 10/15/18 05:50 Est GFR ( Amer) > 60.0 ml/min (>90) 10/15/18 05:50 Est GFR (Non-Af Amer) > 60.0 ml/min 10/15/18 05:50 BUN/Creatinine Ratio 12.2 10/15/18 05:50 Glucose 120 mg/dL (70-105) H 10/15/18 05:50 POC Glucose 118 MG/DL (70 - 105) H 10/12/18 09:04 Calcium 9.4 mg/dL (8.6-10.3) 10/15/18 05:50 Total Bilirubin 0.6 mg/dL (0.3-1.0) 10/13/18 06:51 AST 19 U/L (13-39) 10/13/18 06:51 ALT 16 U/L (7-52) 10/13/18 06:51 Alkaline Phosphatase 51 U/L (34-104) 10/13/18 06:51 Ammonia 50 umol/L (16-53) 10/11/18 22:05 Troponin I 0.01 ng/mL (0.01-0.05) 10/11/18 22:05 Total Protein 7.4 gm/dL (6.0-8.3) 10/13/18 06:51 Albumin 3.9 gm/dL (4.2-5.5) L 10/13/18 06:51 Globulin 3.5 gm/dL 10/13/18 06:51 Albumin/Globulin Ratio 1.1 (1.0-1.8) 10/13/18 06:51 TSH 0.55 uIU/ml (0.34-5.60) 10/11/18 22:05 Urine Source CATH 10/15/18 05:50 Urine Color YELLOW 10/15/18 05:50 Urine Clarity CLEAR (CLEAR) 10/15/18 05:50 Urine pH 6.5 (4.6 - 8.0) 10/15/18 05:50 Ur Specific [place] 1.015 (1.005-1.030) 10/15/18 05:50 Urine Protein NEGATIVE mg/dL (NEGATIVE) 10/15/18 05:50 Urine Glucose (UA) NEGATIVE mg/dL (NEGATIVE) 10/15/18 05:50 Urine Ketones NEGATIVE mg/dL (NEGATIVE) 10/15/18 05:50 Urine Blood NEGATIVE (NEGATIVE) 10/15/18 05:50 Urine Nitrate NEGATIVE (NEGATIVE) 10/15/18 05:50 Urine Bilirubin NEGATIVE (NEGATIVE) 10/15/18 05:50 Urine Urobilinogen 0.2 E.U./dL (0.2 - 1.0) 10/15/18 05:50 Ur Leukocyte Esterase NEGATIVE (NEGATIVE) 10/15/18 05:50 Urine RBC 0-2 /hpf (0-5) H 10/15/18 05:50 Urine WBC 0-2 /hpf (0-5) 10/15/18 05:50 Ur Epithelial Cells Not Reportable 10/15/18 05:50 Uric Acid Crystals FEW /hpf (NONE SEEN) 10/15/18 05:50 Urine Bacteria FEW /hpf (NONE SEEN) 10/15/18 05:50 - Physical Exam Vitals and I&O: Vital Signs Temp 97.7 F 10/15/18 11:14 Pulse 81 10/15/18 11:14 Resp 20 10/15/18 11:14 BP 139/79 10/15/18 11:14 Pulse Ox 96 10/15/18 11:14 Intake & Output 10/14/18 10/15/18 10/15/18 18:59 06:59 18:59 Intake Total 800 220 Balance 800 220 Weight (lbs) 96.162 kg 96.162 kg Intake: Oral 800 120 Tube Feeding 0 Other 100 Other: # Voids 3 1 # Bowel Movements 1 Stool Characteristics Soft Formed Soft Brown Brown Brown Weight Source Bedscale Bedscale Active Medications: Current Medications Acetaminophen/Hydrocodone Bitart ([place] 5mg/325mg) 1 tab PO Q8H PRN PRN Reason: Pain (Severe) Stop: 12/13/18 05:23 Albuterol/Ipratropium (Duoneb Neb) 3 ml [facility] Stop: 12/12/18 22:59 Last Admin: 10/15/18 10:19 Dose: 3 ml Amlodipine Besylate (Norvasc) 5 mg PO DAILY [facility] Stop: 12/13/18 08:59 Last Admin: 10/15/18 08:29 Dose: 5 mg Aspirin (Aspirin Chewable) 81 mg PO DAILY [facility] Stop: 12/13/18 08:59 Last Admin: 10/15/18 08:29 Dose: 81 mg Atorvastatin Calcium (Lipitor) 10 mg PO HS CHARLA; Protocol Stop: 12/13/18 20:59 Last Admin: 10/14/18 20:48 Dose: 10 mg Calcium Carbonate (Os-Dagoberto) 500 mg PO BID CHARLA Stop: 12/13/18 08:59 Last Admin: 10/15/18 08:29 Dose: 500 mg Ceftriaxone Sodium 1 gm/ (Sodium Chloride) 50 mls @ 100 mls/hr IV Q24HR [facility]LA Stop: 12/12/18 19:59 Last Admin: 10/14/18 20:47 Dose: 100 mls/hr Lactulose (Cephulac) 10 gm PO DAILY [facility] Stop: 12/13/18 08:59 Last Admin: 10/15/18 08:29 Dose: 10 gm General: weak HEENT: NC/AT, PERRLA Neck: Supple Lungs: other Cardiovascular: RRR, without murmur Abdomen: soft, non-tender Extremities: clear Neurological: no change Internal Medicine Assmt/Plan - Assessment Assessment: Right lower lobe pneumonia. ALOC. Head Contusion with Forehead laceration. Organic brain syndrome. Hypoxemia. Hypertension. Dyslipidemia. Dementia. Glaucoma. Parkinson's disease. - Plan Plan: Continuation of care Monitor vitals, labs and diet continue present meds as directed Local skin care and wound care prn fall precaution safety precaution psych consult continue present treatment plan as ordered. Nutritional Asmnt/Malnutr-PDOC - Dietary Evaluation Malnutrition Findings (Please click <Entered> for more info): Nutritional Asmnt/Malnutrition Start: 10/13/18 14: 41 Text: Status: Complete Freq: Protocol: Document 10/13/18 14:41 LCHENG (Rec: 10/13/18 14:54 LCHENG [email or web address]) Nutritional Asmnt/Malnutrition Patient General Information Nutritional Screening High Risk Diagnosis hypoxemia, head trauma, organic brain syndrome Pertinent Medical Hx/Surgical Hx HTN, dyslipidemia, dementia, glaucoma, parkinson Subjective Information Pt seen eating lunch in bed at time of visit, feeder, non verbal noted. Pt appeared good appetite. Per INFORMATION OFFICER, pt ate 100 % of meals. Current Diet Order/ Nutrition Support pureed Pertinent Medications no active medications Pertinent Labs 10/13 Na 135, Cl 108 Nutritional Hx/Data Height 1.91 m Height (Calculated Centimeters) 190.5 Current Weight (lbs) 96.162 kg Weight (Calculated Kilograms) 96.2 Weight (Calculated Grams) 44136.6 [place] Body Weight 196 Body Mass Index (BMI) 26.4 Weight Status Overweight GI Symptoms GI Symptoms None Last BM not indicated Difficult in: None Skin Integrity/Comment: bruise to left upper arm, scar to left knee, dryness to left lower foot and sacrum Current %PO Good (75-100%) Estimated Nutritional Goals BEE in Kcals: Using Current wt Calories/Kcals/Kg 23-27 Kcals Calculated 2540-5341 Protein: Using Current wt Protein g/k.8 Protein Calculated 77 Fluid: ml 2208-2592ml (1ml/kcal) Nutritional Problem No current Nutrition Prob Problem n/A Malnutrition Alert Is there a minimum of two criteria No selected? Query Text:Check all the applicable criteria. A minimum of two criteria are recommended for diagnosis of either severe or non-severe malnutrition. Malnutrition Related to Morbid Obesity Malnutrition related to morbid obesity No Intervention/Recommendation Comments 1. Continue with pureed diet as ordered. Assist pt with all meals. 2. Monitor PO intake, wt, labs and skin integrity 3. F/U as low risk in 7 days Expected Outcomes/Goals Expected Outcomes/Goals 1. PO intake to meet at least 75% of nutritional needs. 2. Wt stability, skin to remain intact, labs to approach WNL.
--- NOTE | 2018-10-15 15:47 | Progress Notes ---
DATE: 10/14/2018 SUBJECTIVE: The patient appears to be doing okay, comfortable, in no distress. OBJECTIVE: VITAL SIGNS: Temperature is 97.2, pulse 89, respiration is 20, blood pressure 128/60, saturation 94-95%. CHEST: Good breath sounds, no wheezing. Few rhonchi. HEART: Regular rate and rhythm. ABDOMEN: Soft and nondistended. EXTREMITIES: No edema. IMPRESSION: 1. Respiratory failure. 2. Pneumonia. 3. Dysphagia. 4. Weakness. 5. Status post fall. PLAN: 1. Continue nebulizer treatment. 2. Continue antibiotics. 3. Follow up chest x-ray and supportive care. JOB# [id number]
== END 2018-10-15 15:36 | DRG 177 ==
LOC: ER 21:20 → TELE 10-12 06:50
PROVIDERS: ADMIT Internal Medicine; ATTEND Internal Medicine
DX: J69.0 Pneumonitis due to inhalation of food and vomit (principal); G93.41 Metabolic encephalopathy; J96.91 Respiratory failure, unspecified with hypoxia; R40.4 Transient alteration of awareness; F09 Unspecified mental disorder due to known physiological condition; F03.90 Unspecified dementia, unspecified severity, without behavioral disturbance, psychotic disturbance, mood disturbance, and anxiety; G20 Parkinson's disease; Z88.8 Allergy status to other drugs, medicaments and biological substances; W06.XXXA Fall from bed, initial encounter; Y93.89 Activity, other specified; Y92.89 Other specified places as the place of occurrence of the external cause; Y99.8 Other external cause status; E78.5 Hyperlipidemia, unspecified; H40.9 Unspecified glaucoma; S01.81XA Laceration without foreign body of other part of head, initial encounter; I10 Essential (primary) hypertension; Z79.82 Long term (current) use of aspirin; R13.10 Dysphagia, unspecified
CPT/HCPCS: 36415-UA; 36600-90; 70450-TC; 71045-TC; 71275-TC; 72125-TC; 80048-TC; 80053-TC; 81001-TC; 82140-TC; 82803-TC; 82948-90; 84443-TC; 84484-TC; 85007-TC; 85025-TC; 85610-TC; 85730-TC; 94640; 94760; J0696; J7030; Z7610